=== PATIENT | female | born 1990 | race Caucasian/White ===

== ENCOUNTER 2016-03-29 04:39 | Emergency (ER) | payer OTHER | END 2016-03-29 05:13 | disposition home or self-care (01) | LOC: ED 04:39 | DX: G25.3 Myoclonus (principal); M54.89 Other dorsalgia; J45.909 Unspecified asthma, uncomplicated; F17.210 Nicotine dependence, cigarettes, uncomplicated; F41.9 Anxiety disorder, unspecified; F32.9 Major depressive disorder, single episode, unspecified; Z79.899 Other long term (current) drug therapy ==